=== PATIENT | female | born 1975 | race Two or more races ===

== ENCOUNTER 2018-01-05 22:17 | Emergency (ER) | payer SELFPAY ==
[~2018-01-05] VITALS: Ht 157.5 cm; Wt 65.8 kg
[2018-01-06] MEDS ORDERED: HYDROcodone-ACET 5/325MG TAB PO ONE (03:45)
[2018-01-06 04:42] VITALS: BP 123/56
== END 2018-01-06 04:56 | disposition home or self-care (01) ==
LOC: EDBD 22:17 → ER 22:20
DX: S01.512A Laceration without foreign body of oral cavity, initial encounter (principal); S00.83XA Contusion of other part of head, initial encounter; Z90.49 Acquired absence of other specified parts of digestive tract; Y08.89XA Assault by other specified means, initial encounter; Y99.8 Other external cause status; Y93.89 Activity, other specified; Y92.89 Other specified places as the place of occurrence of the external cause
CPT/HCPCS: 12011; 70450; 70486; 72125; 81025